=== PATIENT | female | born 1985 | race Caucasian/White ===

== ENCOUNTER → 2016-10-22 | Outpatient (CLI) | payer MEDICAID ==
[2016-10-22 13:11] LABS: CHOLESTEROL 174.37 mg/dL (0-200); Direct HDL 50 mg/dL (>40); GLUCOSE 89 mg/dL (75-110); TRIGLYCERIDES 80 mg/dL (<150)
[2016-10-22 13:22] LABS: DIRECT LDL 117 mg/dL (<100)
== END ==
LOC: OD 11:40
PROVIDERS: ATTEND Psychiatry & Neurology Psychiatry
DX: F31.9 Bipolar disorder, unspecified (principal)
CPT/HCPCS: 36415; 80061; 82947

== ENCOUNTER 2017-04-01 17:36 | Emergency (ER) | payer OTHER, MEDICAID ==
--- NOTE | 2017-04-01 19:17 | ER Document Report ---
ED General - General Chief Complaint: Other Stated Complaint: POSSIBLE WITHDRAWL Time Seen by Provider: 04/01/17 19:05 Mode of Arrival: Ambulatory Information source: Patient TRAVEL OUTSIDE OF THE [place] IN LAST 30 DAYS: No - HPI Patient complains to provider of: xanax withdrawal Onset: This morning Onset/Duration: Gradual Associated symptoms: Body/muscle aches, Nausea, Vomiting Exacerbated by: Denies Relieved by: Denies Similar symptoms previously: No Recently seen / treated by doctor: Yes Notes: Patient is a 31-year-old female with a history of bipolar disorder and anxiety disorder, who presents to the emergency room complaining of possible Xanax withdrawal, she was prescribed Xanax on 03/22/2017 by her psychiatrist, she was supposed to be taking 1 tablet daily as needed for anxiety, however she has been taking much more than that and has now run out, she is having nausea, vomiting and body aches, she reports that she is scheduled to go to detox in [place] on April 06, she is concerned that she will be withdrawing from Xanax and experiencing more symptoms prior to going to detox, she attempted to follow-up at [facility] with her psychiatrist today, however was unable to do so at the hour she showed up so they advised her to come to the emergency room instead - Related Data Allergies/Adverse Reactions: latex Allergy (Verified 04/01/17 18:04) Past Medical History - General Information source: Patient - Social History Smoking Status: Current Every Day Smoker Chew tobacco use (# tins/day): No Frequency of alcohol use: Occasional Drug Abuse: None Family History: Reviewed & Not Pertinent Patient has suicidal ideation: No Patient has homicidal ideation: No Renal/ Medical History: Denies: Hx Peritoneal Dialysis Psychiatric Medical History: Reports: Hx Anxiety, Hx Attention Deficit Hyperactivity Disorder, Hx Bipolar Disorder, Hx Post Traumatic Stress Disorder Past Surgical History: Reports: Hx Section - 4, Hx Tonsillectomy - Immunizations Hx Diphtheria, Pertussis, Tetanus Vaccination: Yes Review of Systems - Review of Systems Constitutional: No symptoms reported EENT: No symptoms reported Cardiovascular: No symptoms reported Respiratory: No symptoms reported Gastrointestinal: See HPI Genitourinary: No symptoms reported Female Genitourinary: No symptoms reported Musculoskeletal: See HPI Skin: No symptoms reported Hematologic/Lymphatic: No symptoms reported Neurological/Psychological: No symptoms reported -: Yes All other systems reviewed and negative Physical Exam - Vital signs Vitals: Temp Pulse Resp BP Pulse Ox 98.1 F 81 20 108/79 99 04/01/17 18:03 04/01/17 18:03 04/01/17 18:03 04/01/17 18:03 04/01/17 18:03 Interpretation: Normal - General General appearance: Appears well, Alert - HEENT Head: Normocephalic, Atraumatic Eyes: Normal Pupils: PERRL - Respiratory Respiratory status: No respiratory distress Chest status: Nontender Breath sounds: Normal Chest palpation: Normal - Cardiovascular Rhythm: Regular Heart sounds: Normal auscultation Murmur: No - Abdominal Inspection: Normal Distension: No distension Bowel sounds: Normal Tenderness: Nontender Organomegaly: No organomegaly - Back Back: Normal, Nontender - Extremities General upper extremity: Normal inspection, Nontender, Normal color, Normal ROM , Normal temperature General lower extremity: Normal inspection, Nontender, Normal color, Normal ROM , Normal temperature, Normal weight bearing. No: Ariel's sign - Neurological Neuro grossly intact: Yes Cognition: Normal Orientation: AAOx4 Stephanie Coma Scale Eye Opening: Spontaneous [place] Coma Scale Verbal: Oriented Stephanie Coma Scale Motor: Obeys Commands [place] Coma Scale Total: 15 Speech: Normal Motor strength normal: LUE, RUE, LLE, RLE Sensory: Normal - Psychological Associated symptoms: Normal affect, Normal mood - Skin Skin Temperature: Warm Skin Moisture: Dry Skin Color: Normal Course - Re-evaluation Re-evalutation: 04/01/17 20:26 Patient likely experiencing withdrawal from benzodiazepines, in particular Xanax which she has been taking more than prescribed over the past 9 days, she is scheduled to go to detox in [place] on April 06, she is requesting a small amount of Xanax to get her through until she can appropriately at a facility, I did review patient's information on the [place] controlled substances website, it does not appear as though she has been getting medications from multiple providers for Xanax, therefore she was given a prescription for a total of 7 0.5 mg Xanax tablets to ensure that she does not experience withdrawal over the next week prior to going to detox, she was advised to follow-up with her psychologist or psychiatrist, return if symptoms worsen, patient acknowledges understanding and agreement with this plan - Vital Signs Vital signs: Temp Pulse Resp BP Pulse Ox 97.6 F 66 18 113/70 100 04/01/17 19:29 04/01/17 19:29 04/01/17 19:29 04/01/17 19:29 04/01/17 19:29 Discharge - Discharge Clinical Impression: Xanax use disorder, mild, abuse Condition: Stable Disposition: HOME, SELF-CARE Instructions: Benzodiazepines ([facility]) Additional Instructions: Follow up with your primary care provider and mental health provider in one to 2 days. Return to the emergency room immediately if symptoms worsen or any additional concerns. Prescriptions: Alprazolam [Xanax 0.5 mg Tablet] 0.5 mg PO DAILY #7 tab
[2017-04-01 19:37] VITALS: BP 113/70
== END 2017-04-01 19:35 | disposition home or self-care (01) ==
LOC: ER 17:36
DX: F13.10 Sedative, hypnotic or anxiolytic abuse, uncomplicated (principal); M79.1 Myalgia; R11.2 Nausea with vomiting, unspecified; F41.9 Anxiety disorder, unspecified; F17.200 Nicotine dependence, unspecified, uncomplicated; Z91.14 Patient's other noncompliance with medication regimen; Z91.040 Latex allergy status
CPT/HCPCS: 99284

== ENCOUNTER 2017-07-02 22:58 | Emergency (ER) | payer MEDICAID, OTHER ==
[2017-07-03] MEDS ORDERED: KETOROLAC TROMETHAMINE INJ/PF 30 MG/1 ML SDV IV ONE (01:26)
[2017-07-03] MEDS ORDERED: PROCHLORPERAZINE EDISYLATE INJ 10 MG/2 ML VIAL IV ONE (01:26)
[2017-07-03] MEDS ORDERED: DIPHENHYDRAMINE HCL 50 MG/ML VIAL IV ONE (01:26)
--- NOTE | 2017-07-03 01:29 | ER Document Report ---
ED General - General Chief Complaint: GENERALIZED PAIN Stated Complaint: PAIN ALL OVER Time Seen by Provider: 07/03/17 01:24 TRAVEL OUTSIDE OF THE [place] IN LAST 30 DAYS: No - HPI Notes: Patient is a 32-year-old female who presents the ED complaining of a headache 1 day, nausea/vomiting, suprapubic pain, body ache 1 day. Pt states that she is still able to eat and drink, but does have a dec appetite and occ vomiting. The pain does not radiate and is described as a cramping pain. Her headache is to the front and sides of her head and is similar to past headaches (i.e. h/o migraines). OTC meds have not been helping. Denies any fever, head injury, neck pain, changes in vision/speech/mentation/hearing, URI, sore throat, chest pain, palpitations, syncope, cough, shortness of breath, wheeze, dyspnea, urinary retention, dysuria, hematuria, vaginal discharge/odor/bleeding, back pain, loss of control of bowel or bladder, numbness/tingling, saddle anesthesia , muscle paralysis/weakness, or rash. - Related Data Allergies/Adverse Reactions: latex Allergy (Verified 04/01/17 18:04) Past Medical History - General Information source: Patient - Social History Smoking Status: Unknown if Ever Smoked Family History: Reviewed & Not Pertinent Patient has suicidal ideation: No Patient has homicidal ideation: No Renal/ Medical History: Denies: Hx Peritoneal Dialysis Psychiatric Medical History: Reports: Hx Anxiety, Hx Attention Deficit Hyperactivity Disorder, Hx Bipolar Disorder, Hx Post Traumatic Stress Disorder Past Surgical History: Reports: Hx Section - 4, Hx Tonsillectomy - Immunizations Hx Diphtheria, Pertussis, Tetanus Vaccination: Yes Review of Systems - Review of Systems Notes: REVIEW OF SYSTEMS: CONSTITUTIONAL : Denies fever, chills, or sweats. Denies recent illness. EENT: Denies eye, ear, throat, or mouth pain or symptoms. Denies nasal or sinus congestion or discharge. Denies throat, tongue, or mouth swelling or difficulty swallowing. CARDIOVASCULAR: Denies chest pain. Denies palpitations or racing or irregular heart beat. Denies ankle edema. RESPIRATORY: Denies cough, cold, or chest congestion. Denies shortness of breath, difficulty breathing, or wheezing. GASTROINTESTINAL: see hpi GENITOURINARY: Denies difficulty urinating, painful urination, burning, frequency, blood in urine, or discharge. FEMALE GENITOURINARY: Denies vaginal bleeding, heavy or abnormal periods, irregular periods. Denies vaginal discharge or odor. MUSCULOSKELETAL: + body ache. Denies back or neck pain or stiffness. Denies joint pain or swelling. SKIN: Denies rash, lesions or sores. NEUROLOGICAL: see hpi. Denies confusion or altered mental status. Denies passing out or loss of consciousness. Denies dizziness or lightheadedness. Denies weakness or paralysis or loss of use of either side. Denies problems with gait or speech. Denies sensory loss, numbness, or tingling. ALL OTHER SYSTEMS REVIEWED AND NEGATIVE. Dictation was performed using [employer] voice recognition software Physical Exam - Vital signs Vitals: Temp Pulse Resp BP Pulse Ox 98.7 F 77 20 120/73 100 07/02/17 23:44 07/02/17 23:44 07/02/17 23:44 07/02/17 23:44 07/02/17 23:44 Notes: PHYSICAL EXAMINATION: GENERAL: Well-appearing, well-nourished and in no acute distress. A&Ox4 HEAD: Atraumatic, normocephalic. EYES: Pupils equal round and reactive to light, extraocular movements intact, conjunctiva are normal. Funduscopic unremarkable, but limited with no dilatation. ENT: Nares patent, oropharynx clear without exudates. Moist mucous membranes. EAC's clear bilaterally. TMs intact bilaterally without erythema fluid or perforation. No tonsillar hypertrophy or erythema. No sinus tenderness. NECK: Normal range of motion, supple without lymphadenopathy LUNGS: Breath sounds clear to auscultation bilaterally and equal. No wheezes rales or rhonchi. HEART: Regular rate and rhythm without murmurs ABDOMEN: Soft, nondistended abdomen. No guarding, no rebound. No masses appreciated. Normal bowel sounds present. CVA tenderness negative bilaterally. + mild tenderness to the pubic/suprapubic area. No psoas/rosving/ rodriguez. Female : No inguinal adenopathy. External genitalia without erythema, lesions , or masses. Vaginal mucosa pink with white discharge. Cervix parous, pink, and without discharge. Uterus is smooth. No adnexal tenderness. No CMT. Musculoskeletal: LE's b/l: FROM to passive/active. Strength 5+/5. Extremities: No cyanosis/clubbing/edema b/l. Peripheral pulses 2+. Capillary refill less than 3 seconds. NEUROLOGICAL: MMSE intact. Cranial nerves grossly intact. Normal speech, normal gait. Normal sensory, motor exams PSYCH: Normal mood, normal affect. SKIN: Warm, Dry, normal turgor, no rashes or lesions noted. Course - Re-evaluation Re-evalutation: 07/03/17 04:43 Patient is an afebrile, well-hydrated, 32-year-old female who presents to the ED with headache, nausea/vomiting, and ovarian cyst of the left side. Vitals are stable. PE otherwise unremarkable. CBC, CMP, lipase, urinalysis unremarkable. Urine was negative. Wet mount negative. See pelvic ultrasound. I will cover with Rocephin and Zithromax as precaution for the pending chlamydia and gonorrhea tests. Toradol 15 mg, Benadryl 50 mg Compazine 10 mg given IV today. Headache resolved. Patient states that her overall general body ache is improved and would like to go home. Low suspicion/risk for acute appendicitis, bowel obstruction, acute cholecystitis, acute cholangitis, perforated diverticulitis, incarcerated hernia, pancreatitis, perforated ulcer, peritonitis, sepsis, pelvic inflammatory disease, ectopic , tubo-ovarian abscess, ovarian torsion, or other systemic emergent condition at this time. Patient is aware that her condition can change from initial presentation and she needs to monitor symptoms closely and seek medical attention if any acute changes. Conservative measures otherwise for symptoms. Recheck with OBGYN in 2-3 days. Recheck with your PCM in 2-3 days. Return to the ED with any worsening/concerning symptoms otherwise as reviewed in discharge. Patient is in agreement. - Vital Signs Vital signs: Temp Pulse Resp BP Pulse Ox 98.1 F 93 18 95/47 L 99 07/03/17 04:10 07/03/17 04:10 07/03/17 04:10 07/03/17 04:10 07/03/17 04:10 - Laboratory Result Diagrams: 07/03/17 02:00 07/03/17 02:00 Laboratory results interpreted by me: 07/03/17 07/03/17 01:54 02:00 Chloride 109 H Total Protein 6.0 L Ur Leukocyte Esterase TRACE H Urine Ascorbic Acid 40 H Procedures - Pelvic Exam Pelvic exam Time completed: 02:45 Cultures obtained: Yes Wet prep obtained: Yes Bimanual exam performed: Yes - neg Witnessed by: female nurse Discharge - Discharge Clinical Impression: Headache Qualifiers: Headache type: unspecified Headache chronicity pattern: acute headache Intractability: not intractable Qualified Code(s): R51 - Headache Nausea and vomiting Qualifiers: Vomiting type: unspecified Vomiting Intractability: non-intractable Qualified Code(s): R11.2 - Nausea with vomiting, unspecified Ovarian cyst Qualifiers: Laterality: left Qualified Code(s): N83.202 - Unspecified ovarian cyst, left side Condition: Stable Disposition: HOME, SELF-CARE Instructions: Abdominal Pain ([facility]), Antinausea Medication ([facility]), Ovarian Cyst ( [facility]), Vomiting ([facility]) Additional Instructions: Maintain adequate fluid and food intake Tylenol/ibuprofen as needed You may take Zofran as needed for any nausea Monitor symptoms for any acute changes Recheck with your PCM in 2-3 days 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 Prescriptions: Ondansetron [Zofran Odt 4 mg Tablet] 1 - 2 tab PO Q4H PRN #15 tab.rapdis PRN Reason: For Nausea/Vomiting Referrals: KATHIE ACOSTA MD [Primary Care Provider] - Follow up in 3-5 days [facility] [Provider Group] - Follow up in 3-5 days RACQUEL COOK MD [ACTIVE STAFF] - Follow up as needed
[2017-07-03 02:16] LABS: ABSOLUTE BASOPHILS # (AUTO) 0.1 10^3/uL (0.0-0.2); ABSOLUTE EOSINOPHILS # (AUTO) 0.2 10^3/uL (0.0-0.6); ABSOLUTE LYMPHOCYTES (AUTO) 2.5 10^3/uL (0.5-4.7); ABSOLUTE MONOCYTES (AUTO) 0.6 10^3/uL (0.1-1.4); ABSOLUTE NEUT (AUTO) 7.1 10^3/uL (1.7-8.2); BASOPHILS % (AUTO) 0.6 % (0-2); EOSINOPHILS % (AUTO) 2.4 % (0-6); HEMOGLOBIN 13.2 g/dL (12.0-15.5); HGB HCT DIFFERENCE 1.6; LYMPHOCYTES % (AUTO) 23.6 % (13-45); MEAN CORPUSCULAR HEMOGLOBIN 31.8 pg (27.0-33.4); MEAN CORPUSCULAR HGB CONC 34.8 g/dL (32.0-36.0); MEAN CORPUSCULAR VOLUME 91 fl (80-97); MONOCYTES % (AUTO) 5.6 % (3-13); RED BLOOD COUNT 4.16 10^6/uL (3.72-5.28); RED CELL DISTRIBUTION WIDTH 13.2 % (11.5-14.0); SEGMENTED NEUTROPHILS % (AUTO) 67.8 % (42-78); WHITE BLOOD COUNT 10.5 10^3/uL (4.0-10.5)
[2017-07-03 02:24] LABS: ALANINE AMINOTRANSFERASE 21 U/L (9-52); ALBUMIN 3.6 g/dL (3.5-5.0); ALKALINE PHOSPHATASE 71 U/L (38-126); ANION GAP 6 (5-19); ASPARTATE AMINO TRANSFERASE 16 U/L (14-36); BILIRUBIN,DIRECT 0.3 mg/dL (0.0-0.4); BILIRUBIN,TOTAL 0.3 mg/dL (0.2-1.3); BLOOD UREA NITROGEN 15 mg/dL (7-20); CALCIUM 9.2 mg/dL (8.4-10.2); CARBON DIOXIDE 24 mmol/L (22-30); CHLORIDE 109 mmol/L (98-107); CREATININE RESULT 0.56 mg/dL (0.52-1.25); GLUCOSE 104 mg/dL (75-110); LIPASE 154.2 U/L (23-300); POTASSIUM 3.9 mmol/L (3.6-5.0); SODIUM 139.4 mmol/L (137-145)
[2017-07-03 02:34] LABS: AMORPHOUS SEDIMENT,URINE TRACE /HPF; APPEARANCE,URINE SLIGHTLY-CLOUDY; BILIRUBIN,URINE NEGATIVE (NEGATIVE); GLUCOSE, URINE NEGATIVE (NEGATIVE); KETONES,URINE NEGATIVE (NEGATIVE); LEUKOCYTE ESTERASE,URINE TRACE (NEGATIVE); NITRITE,URINE NEGATIVE (NEGATIVE); PROTEIN,URINE NEGATIVE (NEGATIVE); URINE SPECIFIC GRAVITY 1.018; UROBILINOGEN,URINE NEGATIVE mg/dL (<2.0)
--- NOTE | 2017-07-03 03:40 | RADIOLOGY REPORT (SQ) ---
EXAM DESCRIPTION: U/S NON OB PEL TV W/DOPPLER COMPLETED DATE/TIME: 07/03/2017 3:18 am REASON FOR STUDY: pelvic pain COMPARISON: None. TECHNIQUE: Dynamic and static grayscale images acquired of the pelvis via transvaginal approach and recorded on PACS. Additional selected color Doppler and spectral images recorded. LIMITATIONS: None. FINDINGS: UTERUS: Contour normal. No mass. ENDOMETRIAL STRIPE: No focal or generalized thickening. No masses. CERVIX: Nabothian cysts. RIGHT OVARY: No abnormal masses. 2.1 cm cystic component within normal limits. RIGHT OVARY DOPPLER: Normal arterial vascular flow without evidence for torsion. LEFT OVARY: No abnormal masses. LEFT OVARY DOPPLER: Normal arterial vascular flow without evidence for torsion. FREE FLUID: None noted. OTHER: No other significant finding. MEASUREMENTS: UTERUS: 8.8-cm ENDOMETRIAL STRIPE: 0.6-cm thickness RIGHT OVARY: 3.3 cm LEFT OVARY: 2.3 cm IMPRESSION: NORMAL TRANSVAGINAL PELVIC ULTRASOUND. TECHNICAL DOCUMENTATION: JOB ID: [id number] [employer]- All Rights Reserved
[2017-07-03] MEDS ORDERED: AZITHROMYCIN 250 MG TABLET PO ONE (03:49)
[2017-07-03] MEDS ORDERED: LIDOCAINE 1% INJ-PF (10 MG/ML) 30 ML SDV INJ ONE (03:49)
[2017-07-03] MEDS ORDERED: CEFTRIAXONE INJ 1000 MG VIAL IM ONE (03:49)
[2017-07-03 04:11] VITALS: BP 95/47
[2017-07-03 04:25] LABS: CHLAM PCR NOT DETECTED (NOT DETECT)
== END 2017-07-03 04:10 | disposition home or self-care (01) ==
LOC: ER 22:58
DX: R51 Headache (principal); R11.2 Nausea with vomiting, unspecified; N83.202 Unspecified ovarian cyst, left side; M79.1 Myalgia; R10.2 Pelvic and perineal pain; Z91.040 Latex allergy status
CPT/HCPCS: 99284; 96372; 96374; 96375; 36415; 87210; 83690; 85025; 81025; 80053; 81001; 87491; 87591; 76830; 93976; Q0144; J1200; J3490; J1885; J0780; J0696